=== PATIENT | male | born 1995 ===

== ENCOUNTER 2025-02-25 15:22 | Outpatient (AMB) | payer OTHER, SELFPAY ==
--- NOTE | 2025-02-25 15:43 | A.OFFPC_ITS ---
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: No Accompanied by: Self / Same As Patient Allergies No Known Allergies Allergy (Verified 02/25/25 15:57) Medication List - Last Reconciled 02/25/25 by Danna Lopez PA-C citalopram 10 mg PO DAILY methylphenidate HCl 10 mg PO BID testosterone enanthate 50 mg subcut QWEEK Tobacco use date assessed: 02/25/25 Dental Screening Dental Screen Date: 02/25/25 Did you have a dental visit in the last 12 months?: No Did you have a dental problem in the last 6 months where you did not have access to dental care?: No Was dental information given to patient?: Patient has dentist HPI Establish Care HPI Details The patient is a 29-year-old male born female status post hysterectomy currently on hormone testosterone replacement therapy presenting for a annual physical exam and in addition management of hormone replacement therapy. The patient has a history of psoriasis, primarily affecting the shoulders with minor crusty patches. The condition has been present for years, with familial history noted as his twin sister was diagnosed as a child. The patient manages the condition with ghdh-zsk-jihvxdh hydrocortisone, which effectively clears the patches. The patient experiences anxiety, which has been associated with elevated heart rates during medical visits. He acknowledges the anxiety but reports no other significant symptoms or complications. The patient is undergoing hormone replacement therapy with testosterone, having been on a consistent dose since age 17. He reports a lapse in therapy due to running out of medication and is seeking to resume the same dosage. The patient has a history of hysterectomy and oophorectomy, necessitating ongoing testosterone therapy to mitigate risks such as osteoporosis. 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 - Housing: Recently moved to [facility] - Family Status: Has a twin sister [facility] Medical History (Updated 02/25/25 @ 16:29 by Danna Lopez PA-C) History of hormone replacement therapy Anxiety Psoriasis Annual physical exam Family History Father BP (high blood pressure) A-fib Skin cancer Mother Low BP Social History Housing: House Alcohol intake: current Alcohol intake frequency: a few times a week Patient Tobacco Use Status: Former Tobacco user e-Cigarette/Vaping Use: Currently Using Substance Use Type: Marijuana service: No Current occupational status: employed Cognitive needs: No Hearing needs: No Vision needs: No Questionnaire PHQ-9 Over the last 2 weeks, how often have you been bothered by any of the following problems? 1. Little interest or pleasure in doing things: not at all 2. Feeling down, depressed, or hopeless: not at all 3. Trouble falling or staying asleep, or sleeping too much: not at all 4. Feeling tired or having little energy: not at all 5. Poor appetite or overeating: not at all 6. Feeling bad about yourself - or that you are a failure or have let yourself or your family down: not at all 7. Trouble concentrating on things, such as reading the newspaper or watching television: not at all 8. Moving or speaking so slowly that other people could have noticed. Or the opposite - being so fidgety or restless that you have been moving around a lot more than usual: not at all 9. Thoughts that you would be better off or of hurting yourself in some wa y: not at all Total score: 0 Depression Screening Interpretation: Negative Depression Screening Done: Yes 57123 - PHQ-9 Billing: Yes Source: Developed by Drs. Jay Arceo, Veronica Gonzalez, Reilly Carbajal and colleagues, with an educational blue from [employer]. Thrive Questionnaire Date Thrive assessed: 02/25/25 I am a: Patient What is your living situation today?: I have a steady place to live Within the past 12 months, did the food you bought not last and you didn't have the money to get more?: Never true Within the past 12 months, did you worry whether your food would run out before you got money to buy more?: Never true Do you have trouble paying for medicines?: No Do you have trouble getting transportation to medical appointments?: No Do you have trouble paying your heating and electricity bill?: No Do you have trouble taking care of your child, family member or friend?: No Do you have trouble with day-to-day activities such as bathing, preparing meals, shopping, managing finances, etc.?: No Are you currently unemployed and looking for a job?: No Are you interested in more education?: No Please select the resources that you would like help with: None THRIVE Score: 0 AUDIT C Alcohol Use Questionnaire (AUDIT-C) 1. How often do you have a drink containing alcohol?: 2-3 times a week 2. How many drinks containing alcohol do you have on a typical day when you are drinking?: 1 or 2 3. How often do you have six or more drinks on one occasion?: Never Total Score: 3 Score Reviewed/Action Taken: No DOREEN-7 AMB Questionnaire DOREEN-7 Date DOREEN - 7 assessed: 02/25/25 Feeling nervous, anxious, or on edge: 0 = Not at all Not being able to stop or control worryin = Not at all Worrying too much about different things: 0 = Not at all Trouble relaxin = Not at all Being so restless that it is hard to sit still: 0 = Not at all Becoming easily annoyed or irritable: 0 = Not at all Feeling afraid as if something awful might happen: 0 = Not at all Total DOREEN-7 score (0-4 normal; 5-9 mild; 10-14 moderate; 15-21 severe): 0 Source: Developed by Drs. Jay Arceo, Veronica Gonzalez, Reilly Carbajal and colleagues, with an educational blue from [employer]. DOREEN-7 Assessment Billing DOREEN-7 Assessment Tool: DOREEN-7 Assessment 94376 Review of Systems Const Details: - Dermatological: Reports minor crusty patches on shoulders consistent with psoriasis - Cardiovascular: Reports anxiety-related elevated heart rate - Endocrine: Denies need for estrogen or other hormones besides testosterone All systems reviewed & are unremarkable except as noted in HPI and below Physical exam (Primary Care) Vital Signs: Last Vital Signs Temp 98.2 F 02/25/25 15:46 Pulse 116 H 02/25/25 15:46 Resp 14 02/25/25 15:46 BP 118/66 02/25/25 15:46 Pulse Ox 99 09/15/25 15:46 Care Plan Goal for BP management: <140/90 at Goal BMI result Body Mass Index 20.4 Normal BMI Tobacco/Smoking Status: Tobacco use Status Tobacco use date assessed 02/25/25 02/25/25 15:53 Patient Tobacco Use Status Former Tobacco user 02/25/25 15:53 e-Cigarette/Vaping Use Currently Using 02/25/25 15:53 PHQ-9: PHQ-9 Score PHQ-9: Total score 0 02/25/25 15:57 Depression Screening Interpretation: Negative Thrive Assessment: Date of Thrive Assessment Date Thrive assessed 02/25/25 02/25/25 15:53 Const Other: Appearance: Alert. Oriented X3. No acute distress. Head: Normal external exam. Normocephalic. Atraumatic. Eyes: Pupils are equal, round, and reactive to light. Extraocular movements intact. Conjunctiva and sclera normal. Eyelids normal. Ears: External auditory canal normal. Tympanic membranes normal. Throat: Pharynx normal. Uvula midline. Moist mucous membranes. Neck: Normal inspection. Neck supple. Full range of motion. No adenopathy. Thyroid Normal. No meningeal signs. No neck mass noted. Cardiovascular: Heart rate was a little high initially due to anxiety but rechecked and found to be normal. Normal heart rate and rhythm. Heart sound normal. No murmurs noted. Pulses normal throughout. Respiratory: No respiratory distress. Painless inspiration. Breath sounds normal. No wheezes/rales/rhonchi noted. Chest nontender. No accessory muscle usage noted or decreased air movement noted. Abdomen: Soft and nontender. Bowel sounds normal in all 4 quadrants. No distention noted. No organomegaly noted. No visible injury noted. Back: No costovertebral angle tenderness. Full range of motion noted. Skin: Skin warm and dry. Normal skin color. Normal skin turgor. Psoriasis noted on shoulders with minor crusty patches. No other rashes/lesions/lacerations noted. Extremities: No lower extremity edema. Extremities exhibit normal range of motion. Extremities nontender. Neuro: Oriented X 3. No motor deficit. No sensory deficit. Reflexes normal. Coding Level of Care Code New Pt Level 4 (59342) New Pt Prev Care 18-39yr(53997 Diagnoses Annual physical exam Z00.00 Psoriasis L40.9 Anxiety F41.9 History of hormone replacement therapy Z92.29 Additional Codes PHQ-9 - 25242 - PHQ-9 Billing: Yes ([id number]) DOREEN-7 Assessment Billing - DOREEN-7 Assessment Tool: DOREEN-7 Assessment 86724 ([id number]) Assessment & Plan Assessment & Plan (1) Annual physical exam: Code(s): Z00.00 - Encounter for general adult medical examination without abnormal findings Category: Medical (2) Psoriasis: Code(s): L40.9 - Psoriasis, unspecified Category: Medical Plan: The patient manages psoriasis with ycpk-umv-wpaupff hydrocortisone, which ef fectively clears the patches. No additional prescription treatment was deemed necessary at this time. (3) Anxiety: Code(s): F41.9 - Anxiety disorder, unspecified Category: Medical Plan: The patient acknowledges anxiety, which is managed without specific medication changes discussed during this visit. (4) History of hormone replacement therapy: Comment: Born female transitioned to male. History of hysterectomy Code(s): Z92.29 - Personal history of other drug therapy Category: Medical Plan: The patient acknowledges anxiety, which is managed without specific medication changes discussed during this visit. Plan Plan Patient was informed and verbally consented to the use of an ambient scribe for clinic note documentation during this visit. 1. Psoriasis The patient manages psoriasis with wgph-xws-bwkxgre hydrocortisone, which effectively clears the patches. No additional prescription treatment was deemed necessary at this time. 2. Anxiety The patient acknowledges anxiety, which is managed without specific medication changes discussed during this visit. 3. Hormone Replacement Therapy (Testosterone) The patient is to resume testosterone therapy at the previous dosage, as he has been stable on this dose since age 17. A prescription for testosterone will be provided, and blood work will be conducted to monitor levels. During the visit, we discussed the patient's management of psoriasis with kxoh-yra-ctscham hydrocortisone, which has been effective. We also reviewed the patient's anxiety, noting that no changes in management were necessary at this time. For hormone replacement therapy, the patient will resume testosterone at the previous dosage, and we will conduct blood work to monitor levels. Orders: Orders TSH reflex Free T4 Today Z00.00 - Encounter for general adult medical examination without abnormal findings Testosterone, Free/Total Today Z00.00 - Encounter for general adult medical examination without abnormal findings Liver Panel Today Z00.00 - Encounter for general adult medical examination without abnormal findings Vitamin B12 and Folate Today Z00.00 - Encounter for general adult medical examination without abnormal findings Vitamin D 25-OH Total Today Z00.00 - Encounter for general adult medical examination without abnormal findings C Reactive Protein Today Z00.00 - Encounter for general adult medical examination without abnormal findings Complete Blood Count Auto Diff Today Z00.00 - Encounter for general adult medical examination without abnormal findings Comprehensive [place]. Panel Fast Today Z00.00 - Encounter for general adult medical examination without abnormal findings Hemoglobin A1c Today Z00.00 - Encounter for general adult medical examination without abnormal findings DHEA Sulfate Today Z00.00 - Encounter for general adult medical examination without abnormal findings Dihydrotestosterone Today Z00.00 - Encounter for general adult medical examination without abnormal findings Magnesium Today Z00.00 - Encounter for general adult medical examination without abnormal findings Lipid Panel Today Z00.00 - Encounter for general adult medical examination without abnormal findings Medications: New escitalopram oxalate 10 mg PO DAILY hydrocortisone 2.5% 1 appl topical BID-TID PRN 28.35 grams 1RF itching Patient Instructions: - Continue using cyyd-sbw-uloesxy hydrocortisone for psoriasis as needed. - Resume testosterone therapy at the previous dosage. - Complete the recommended blood work, fasting for 10-12 hours prior. - Schedule yearly follow-ups or sooner if any changes occur.
[2025-02-25 15:46] VITALS: BP 118/66; PULSE 116; RESP 14; TEMP 36.8; O2SAT 99; BMI 20.4
[2025-02-25 16:22] VITALS: PULSE 97
--- OUTSIDE RECORDS SUMMARY | 2025-02-25 20:49 | XMS_ITS | Encounter Summary ---
Author Organization [facility] Address [address] [facility] [address] [place] [id number] Phone Care Team Providers Care Last Sorter Name Role Phone Alfred Bautista CNP Primary Care Provider [phone]- [phone] Encounter Details Date Type Department Care Team ([facility] st Contact Info) Description 03/04/2023 Transcribe Orders [facility] Laboratory [address] [place] [id number] Tarsha Palomares PA [address] [place] [address] [email or web address] Social History Tobacco Use Types Packs/Day Years Used Date Smoking Tobacco: Never Smokeless Tobacco: Never Alcohol Use Standard Drinks/Week Comments Never 0 (1 standard drink = 0.6 oz pur e alcohol) Child or Family Care Answer Date Record ed Do you have problems with on e of the following making it difficult for you to work, study, or receive health care? No 09/22/2022 Education Answer Date Recorded Are you interested in help w ith more adult education (for example, completing high school, GED, job training, learning the Sami language, technical skills, or developing parenting skills)? No 09/22/2022 Are you concerned about learning? Not on file 09/22/2022 No 09/22/2022 Yes 09/22/2022 Food Answer Date Recorded Within the past 6 months we worried whether our food would run out before we got money to buy more. Never True 023 Within the past 6 months the food we bought just didn't last and we didn't have enough money to get more. Sometimes True 09/11 Residential Stability Answer Date Recor ded What is your housing situation today? I have carla bach 09/22/2022 How many times have you move d in the past 12 months? Zero (I did not move) 09/22/2022 Paying for Meds Answer Date Recorded Do you have trouble paying for medicines? No 09/22/2022 Paying Utility Bills Answer Date Record ed Do you have trouble paying your heating or elect ricity bill? No 09/22/2022 Transportation Answer Date Recorded Has the lack of transportati on kept you from medical appointments or from getting medications? Yes 09/22/2022 Unemployment Answer Date Recorded Are you currently unemployed or working on a part-time or temporary basis, and looking for work? I choose not to answer 09/22/2022 Digital Access Answer Date Recorded No 11/06/2022 No 11/06/2022 Reliable internet access at home? Not on file 11/06/2022 Device with a working camera? Not on file Intimate Partner Violence Answer Date R ecorded Denied Basic Needs Not on file 09/22/2022 In the past 12 months have y ou been in a relationship with a person who hurts, threatens, or tries to control you? No 09/22/2022 Worried food would run out Not on file 09/22 In the past 12 months have y ou been in a relationship with a person who hurts, threatens, or tries to control you? No 09/22/2022 Comments Unknown Sex and Gender Information Value Date Recorded Sex Assigned at Female 01/07/2023 4:05 AM EDT Legal Sex Male 3:51 PM EDT Gender Identity Transgender Male 01/07/2023 4:0 5 AM EDT Sexual Orientation Pansexual 01/07/2023 4: 05 AM EDT documented as of this encounter Plan of Treatment Not on file documented as of this encounter Visit Diagnoses Not on filedocumented in this encounter Additional Health Concerns Assessment Noted Time PHQ-9 Depression Total Score: 11 023 8:21 AM EDT PHQ-2 Depression Total Score: 5 01/15/20 23 8:21 AM EDT documented as of this encounter Care Teams Last Sorter Relationship Specialty Start Date End Date Alfred Bautista CNP [address] [place] [address] [email or web address] PCP - General Family Medicine 01/12/23 documented as of this encounter Additional Source Comments The information contained in this document represents components of the legal health record. It is not the complete legal health record.[facility]
--- OUTSIDE RECORDS SUMMARY | 2025-02-25 20:49 | XMS_ITS | Encounter Summary ---
Author Organization [facility] Address [address] [facility] [address] [place] [phone] Phone Care Team Providers Care Customer Engagement Representative Name Role Phone Alfred Bautista CNP Primary Care Provider [phone]- [phone] Encounter Details Date Type Department Care Team (Late st Contact Info) Description 01/17/2023 Transcribe Orders [facility] [address] [place] [address] Alfred Bautista CNP [address] [facility] [place] [address] [email or web address] Social History Tobacco Use Types Packs/Day Years [...] high school, GED, job training, learning the Maltese language, technical skills, or developing parenting skills)? [...] PM EDT Gender Identity Transgender Male 01/07/2023 4:05 AM EDT Sexual Orientation Pansexual 01/07/2023 4: [...] documented as of this encounter Care Teams Customer Engagement Representative Relationship Specialty Start Date End Date Alfred Bautista CNP [address] [place] [address] [email or web address] PCP - General Family Medicine 01/12/23 documented as of this encounter Additional Source Comments The information contained in this document represents components of the legal health record. It is not the complete legal health record.[facility]
--- OUTSIDE RECORDS SUMMARY | 2025-02-25 20:49 | XMS_ITS | Clinical Summary ---
Author Organization [facility] Address [address] [address] Phone Care Team Providers Care Construction Teacher Name Role Phone Alfred Bautista LONGSHORE EQUIPMENT OPERATOR Primary Care Provider [phone] Allergies Active Allergy Reactions Criticality Noted Date Comments Oxycodone-Acetaminophen 01/10/2019 Medications SUMAtriptan (IMITREX) 50 MG tabletIndicatio ns:Migraine with aura and without status migrainosus, not intractable Take 1 tablet (50 mg total) by mouth once as needed for migraine. Can repeat dose in 2 hours if needed. Do not exceed 2 doses in a 24 hour period. Max dose 200mg/ day 30 tablet 3 Active escitalopram oxalate (LEXAPRO) 10 MG tablet Take 10 mg by mouth daily. 3 Active methylphenidate HCl (RITALIN) 5 MG tablet Take 5 mg by mouth 2 (two) times a day. 3 Active ciclopirox (CICLODAN) 0.77 % creamIndication s:Rash and other nonspecific skin eruption Apply topically 2 (two) times a day. Gently massage into affected areas and surrounding skin 15 g 1 4 Active syringe, disposable, 1 mL SyrgIndications :Transgender person on hormone therapy 1 each by Miscellaneous route once a week. 100 each 4 Active syringe with needle 1 mL 25 gauge x 5/8 SyrgIndications :Transgender person on hormone therapy Inject 1 each as directed once a week. 50 each 1 4 Active syringe with needle 3 mL 22 x 1 06/14 SyrgIndications :Transgender person on hormone therapy 1 each by Miscellaneous route as needed. 50 each 1 4 Active testosterone cypionate (DEPO-TESTOTERO NE) 200 mg/mL injectionIndica tions:Transgend er person on hormone therapy Inject 0.3 mL (60 mg total) into the muscle every 7 days. 4 mL 4 Active Active Problems Problem Noted Date Diagnosed Date Rash and other nonspecific skin eruption 024 Assessment & Plan (07/08/2023 9:43 AM EST): Not 100% consistent with ringworm but due to known exposure/appearance will trial a topical anti-fungal. Encourage to apply to rash and surrounding skin twice a day. Try consistently for 2 weeks as it can take 1-4 weeks to resolve. Advised to follow- up if no improvement and/or worsening symptoms, can consider dermatology referral if needed Family history of ankylosing spondylitis 023 Assessment & Plan (06/10/2023 4:06 PM EST): Due to family history of in uncle and back pain improved with activity, can check x-ray/inflammatory markers to ensure normal Back pain, lumbosacral 06/10/2023 Assessment & Plan (06/10/2023 4:05 PM EST): Present x 6-9 months but worse over the past few days. No known injury/trauma but not unreasonable he could have tweaked it at work. Will check x-ray of lumbar spine (due to family history of - although may not likely show up), also check ESR/CRP. Continue with supportive therapy of heat/Ibuprofen. Will also refer to PT, order entered and phone # provided for patient. If no improvement, can consider ortho referral in the future. Aware to follow-up sooner for any new/worsening symptoms and/or seek emergency help for any red flag symptoms, expresses understanding Immunity status testing 01/17/2023 Assessment & Plan (01/17/2023 11:07 AM EDT): Had 3 dose series approximately 8 years ago. Will check titer, if < .5 will give booster dose per CDC guidelines Weight loss 01/17/2023 Assessment & Plan (01/17/2023 11:08 AM EDT): *see plan per diarrhea Transgender person on hormone therapy 09/22/2022 Assessment & Plan (07/08/2023 9:43 AM EST): Requesting refill on Testosterone/syringes and needles. Last labs done 09/2022. Is unsure needle size, will check at home and send message via portal, otherwise testosterone sent 07/07/23 and needle rx sent today. Reports being on same dose of testosterone since starting transition at age 17 Assessment & Plan (09/22/2022 3:00 PM EDT): Transitioned FTM. Underwent surgical revisions, last one two years ago. Testosterone replacement therapy prescribed by previous PCP. Has been on since age 17. Does 0.3 mL (60 mg) once a week. Last labs done 09/2021 (brought copy of results), was slightly low as he had been rationing due to low supply. Has typically been stable at current dose. Will check CMP/testosterone levels today. Refill sent for patient. Is currently in the [place] for school (is home this week on break) graduates November and moving back to this area in December, will set up new patient visit for that time Anxiety and depression 09/22/2022 Assessment & Plan (09/22/2022 2:59 PM EDT): Had been on medication in the past without help with symptoms. No SI/HI. Discussed option of medications, not interested at this time. Feels finishing school/finals and moving back home will help overall. Plan for NPT in December, aware to follow-up sooner if needed Migraine headache with aura 08/18/2021 Assessment & Plan (09/22/2022 3:01 PM EDT): Reports symptoms 5-6 x a month. Had discussed Sumatriptan in the past but PCP was hesitant due to being on SSRI. No longer taking SSRI and is interested in having a prn medication. Reviewed risks/benefits, can take 1 tablet and if no improvement after 2 hours, take 1 more tablet. In December can review how frequently using this medication, if notes to be excessive can discuss daily anti-migraine medications and/or refer to neurology, expresses understanding Moderate episode of recurrent major depressive d isorder 08/18/2021 Acquired absence of ovaries, bilateral 9 Absence of both cervix and uterus, acquired 11/2018 Acquired absence of bilateral breasts and nipple s 11/08/2018 Resolved Problems Problem Noted Date Diagnosed Date Resolved Date Diarrhea of infectious origin 01/17/2023 06/10/2023 Assessment & Plan (01/17/2023 11:08 AM EDT): Tested + shigella while in the [place]. Wasn't give antibiotics as likely advised patient would clear on his own. Continues with diarrhea 3-5 x a day. No further blood in stool. Will re-test stool to confirm continued infection as may be underlying autoimmune crohn's/UC. Patient is agreeable and will obtain stool study and follow-up with results. Urgent referral also placed to GI with phone # for patient. Labs including CBC/CRP ordered today for comparison to previous. Continue with bland diet/adequate hydration. Aware to follow-up sooner and/or ER if any worsening symptoms Immunizations Immunization Administration Dates Next Due Hepatitis A, Adult 06/11/2021 Hepatitis A, ped/adol, 2 dose 02/03/2017 Td (adult) 5 Lf Tetanus Toxoid, PF, Adsorbed Social History Tobacco Use Types Packs/Day Years Used Date Smoking Tobacco: Never Smokeless Tobacco: Never Tobacco Cessation:Counseling Given: Not Answered Alcohol Use Standard Drinks/Week Comments Never 0 (1 standard drink = 0.6 oz pur e alcohol) Child or Family Care Answer Date Record ed Do you have problems with on e of the following making it difficult for you to work, study, or receive health care? No 09/22/2022 Education Answer Date Recorded Are you interested in more education? Not on julieta e 09/26/2024 Are you concerned about learning? Not on file 09/26/2024 No 09/26/2024 No 09/26/2024 Food Answer Date Recorded Within the past [...] Orientation Pansexual 01/07/2023 4: 05 AM EDT Last Filed Vital Signs Vital Sign Reading Time Taken Comments Blood Pressure 118/60 07/08/2023 9:05 AM EST Pulse 64 07/08/2023 9:05 AM EST Temperature 36.5 C (97.7 F) 07/08/2023 9:05 AM EST Respiratory Rate 20 01/17/2023 10:27 AM EDT Oxygen Saturation 99% 07/08/2023 9:05 AM EST Inhaled Oxygen Concentration - - Weight 53.5 kg (118 lb) 07/08/2023 9:05 AM EST w ith shoes Height 167.6 cm (5' 5.98 ) 07/08/2023 9:05 AM ES T Body Mass Index 19.05 07/08/2023 9:05 AM EST Plan of Treatment Health Maintenance Due Date Last Done Comments HEPATITIS C SCREENING 2014 HIV ONE-TIME SCREENING (18-6 5 YEARS) 2014 DEPRESSION SCREENING 01/15/2024 01/14/2023, 01/14/2023 INFLUENZA VACCINE (#1) 2025 COVID-19 VACCINE (2024-2 6 season) 2025 05/27/2021, 10/21/2020, 10/02/2020 Adult Td,Tdap Booster 02/03/2027 02/03/2017 HEPATITIS A VACCINES Aged Out 06/11/2021, 02/03/2017 No longer eligible based on patient's age to complete this topic SMOKING STATUS SCREENING (On ce After 26 Yrs) Completed 07/08/2023 HIB VACCINES Aged Out No longer eligi ble based on patient's age to complete this topic MENINGOCOCCAL VACCINES (ACWY) Aged Out No longer eligible based on patient's age to complete this topic MENINGOCOCCAL VACCINES (B) Aged Out N o longer eligible based on patient's age to complete this topic PNEUMOCOCCAL VACCINES (0-49 years) Aged Out No longer eligible b ased on patient's age to complete this topic Medical Devices Not on file Insurance [facility] [employer] PLANS DIRECT [place] [address] [address] DIRECT Care Teams Construction Teacher Relationship Specialty Start Date End Date Alfred Bautista CNP [address] [facility] [place] [address] [email or web address] PCP - General Family Medicine 01/12/23 Additional Source Comments The information contained in this document represents components of the legal health record. It is not the complete legal health record.[facility]
--- OUTSIDE RECORDS SUMMARY | 2025-02-25 20:49 | XMS_ITS | Encounter Summary ---
Author Organization [facility] Address [address] [facility] [address] [place] [address] Phone Care Team Providers Care Oxygraph Operator Name Role Phone Alfred Bautista CNP Primary Care Provider [phone] Encounter Details Date Type Department Care Team (Late st Contact Info) Description 02/04/2023 Transcribe Orders [facility] [address] [place] [address] Alfred Bautista CNP [address] [facility] Medicine [place], [place] [id number] [email or web address] Social History Tobacco Use Types Packs/Day Years [...] high school, GED, job training, learning the Urdu language, technical skills, or developing parenting skills)? [...] documented as of this encounter Care Teams Oxygraph Operator Relationship Specialty Start Date End Date Alfred Bautista CNP [address] [place] [address] [email or web address] PCP - General Family Medicine 01/12/23 documented as of this encounter Additional Source Comments The information contained in this document represents components of the legal health record. It is not the complete legal health record.[facility]
--- OUTSIDE RECORDS SUMMARY | 2025-02-25 20:49 | XMS_ITS | Clinical Summary ---
Author Organization [facility] [employer] Address [address] [facility] [address] [place] [address] Care Team Providers Care Motor Equipment Sergeant Name Role Phone Johnny Luna MD Primary Care Provider [phone] Allergies Active Allergy Reactions Criticality Noted Date Comments Oxycodone-Acetaminophen 01/10/2019 Medications * This document contains information received from the source organization and may not represent a complete record from that organization. busPIRone (Buspar) 5 MG tablet Take 5 mg by mouth 3 times daily. 03/24/20 22 Active BD SafetyGlide Needle 25G X 5/8 misc USE 1 NEEDLE SUBCUTANEOUSLY DIRECTED FOR USE WITH SUBCUTANEOUS TESTOSTERONE INJECTION 04/03/20 22 Active B-D SYRINGE LUER-SHAUN 1CC 1 ML misc USE 1 SYRINGE DIRECTED DIRECTED 20 G X 1 - FOR DRAWING UP MEDICATION 01/07/20 22 Active SUMAtriptan (Imitrex) 50 MG tablet Take 50 mg by mouth if needed each day. 09/23/19 23 Active sertraline (Zoloft) 50 MG tablet 10/21/19 21 Active testosterone cypionate (Depo-Testoster one) 200 MG/ML injection Inject 0.3 mL (60 mg) into the shoulder, thigh, or buttocks every 7 (seven) days. 4 mL 5 09/23/19 23 Active Active Problems Problem Noted Date Diagnosed Date Anxiety and depression 09/22/2022 Overview (09/22/2022): Last Assessment & Plan: Had been on medication in the past without help with symptoms. No SI/HI. Discussed option of medications, not interested at this time. Feels finishing school/finals and moving back home will help overall. Plan for NPT in December, aware to follow-up sooner if needed Migraine headache with aura 08/18/2021 Moderate episode of recurrent major depressive d isorder 08/18/2021 Arthralgia 01/16/2021 Acquired absence of both cervix and uterus 01/16 Acquired absence of ovaries, bilateral 9 Presence of urogenital implants 01/16/2019 Acquired absence of bilateral breasts and nipple s 11/08/2018 Endocrine disorder 12/21/2012 Social History Tobacco Use Types Packs/Day Years Used Date Smoking Tobacco: Never Assessed Comments Unknown Sex and Gender Information Value Date Recorded Sex Assigned at Female 04/09/2022 3:51 PM EDT Legal Sex Male 3:51 PM EDT Gender Identity Male 04/09/2022 3:51 PM EDT Sexual Orientation Bisexual 04/09/2022 3: 51 PM EDT Last Filed Vital Signs Vital Sign Reading Time Taken Comments Blood Pressure 120/86 09/29/2021 4:24 PM EDT Pulse 117 09/29/2021 4:24 PM EDT Temperature - - Respiratory Rate - - Oxygen Saturation 97% 09/29/2021 4:24 PM EDT Inhaled Oxygen Concentration - - Weight 59.6 kg (131 lb 6.1 oz) 09/29/2021 4:24 P M EDT Height 165.1 cm (5' 5 ) 09/29/2021 4:24 PM EDT Body Mass Index 21.86 09/29/2021 4:24 PM EDT Plan of Treatment Health Maintenance Due Date Last Done Comments Depression Screening 1996 Disability Screening 1996 Alcohol/Substance Use Screening 2008 Tobacco Screening 2008 Family Planning (PISQ) 08/20/2011 HPV Vaccines (1 - 3-dose series) 08/20/2011 Hepatitis B Vaccines (1 of 3 - 19+ 3-dose series) 08/20/2015 DTaP/Tdap/Td Vaccines (1 - Tdap) 02/04/2017 02/03/2017 Pap Smear 2017 COVID-19 Vaccine (4 - 2024-2 6 season) 2025 05/27/2021, 10/21/2020, 10/02/2020 Influenza Vaccine (#1) 2025 , 05/17/2018 Zoster Vaccines (1 of 2) 2046 RSV Patients and Patients Aged 60 years or older (1 - 1-dose 75+ series) 08/20/2071 Hepatitis A Vaccines Aged Out 06/11/2021, 02/03/2017 No longer eligible based on patient's age to complete this topic HIB Vaccines Aged Out No longer eligi ble based on patient's age to complete this topic IPV Vaccines Aged Out No longer eligi ble based on patient's age to complete this topic Meningococcal B Vaccine Aged Out No l onger eligible based on patient's age to complete this topic Meningococcal Vaccine Aged Out No adriano anthony eligible based on patient's age to complete this topic Pneumococcal Vaccine: Pediatrics (0 to 5 Years) and At-Risk Patients (6 to 49) Years Aged Out No longer eligible b ased on patient's age to complete this topic RSV under 20 months Aged Out No longe r eligible based on patient's age to complete this topic Rotavirus Vaccines Aged Out No longer eligible based on patient's age to complete this topic Care Teams Motor Equipment Sergeant Relationship Specialty Start Date End Date Johnny Luna MD PCP - General Pediatrics 08/18/21
== END 2025-02-25 16:10 | disposition home or self-care (01) ==
LOC: HO.HMCSH 15:23
PROVIDERS: PCP Physician Assistant Medical; Visit Provider Physician Assistant Medical
DX: Z00.00 Encounter for general adult medical examination without abnormal findings (principal); L40.9 Psoriasis, unspecified; F41.9 Anxiety disorder, unspecified; Z92.29 Personal history of other drug therapy

== ENCOUNTER → 2025-02-25 15:22 | Outpatient (BNVA) | payer OTHER, SELFPAY | PROVIDERS: PCP Physician Assistant Medical; Visit Provider Physician Assistant Medical | DX: Z00.00 Encounter for general adult medical examination without abnormal findings (principal); L40.9 Psoriasis, unspecified; F41.9 Anxiety disorder, unspecified; Z92.29 Personal history of other drug therapy | CPT/HCPCS: 96127 ==